=== PATIENT | female | born 1970 | race Caucasian/White ===

== ENCOUNTER 2021-03-13 19:56 | Emergency (ER) | payer OTHER, SELFPAY ==
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
[2021-03-13 20:00] VITALS: BP 184/86; PULSE 106; RESP 16; TEMP 37.7; O2SAT 100
[2021-03-13 23:35] VITALS: BP 177/67; PULSE 83; RESP 16; TEMP 36.7; O2SAT 100
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
[2021-03-13] MEDS: HYDROcodone/acetaminophen (*CRX) 5-325 MG TABLET 1 TAB PO (23:58)
[2021-03-14 00:09] VITALS: PULSE 81; RESP 18; O2SAT 100
== END 2021-03-14 00:10 | disposition home or self-care (01) ==
LOC: ANHED 23:52
PROVIDERS: Emergency Provider Family Medicine; PCP Internal Medicine
DX: R07.89 Other chest pain (principal); V43.52XA Car driver injured in collision with other type car in traffic accident, initial encounter
CPT/HCPCS: 71046; 99283; A9270

== ENCOUNTER 2021-04-12 13:57 | Outpatient (CLI) | payer BC, SELFPAY ==
--- NOTE | ~2021-04-12 | XR_ITS ---
XR lumbar spine min 4V DATE: 04/12/2021 14:34 INDICATION: Acute bilateral low back pain TECHNIQUE: AP, lateral, bilateral oblique views, coned lateral lumbosacral view COMPARISON: None FINDINGS: Mild levoscoliosis. No fracture or spondylolisthesis. The lumbar pedicles are intact. No fracture or bone destruction or spondylolysis. Lumbar and lumbosacral interspaces are well preserve d. There is degenerative change at the apophyseal joints. The sacroiliac joints are intact. Status post cholecystectomy. IMPRESSION: No significant abnormality Reviewed, dictated and finalized at location A. [facility] IMPRESSION: No significant abnormality
--- NOTE | ~2021-04-12 | XR_ITS ---
XR knee LT 3V DATE: 04/12/2021 14:34 INDICATION: Acute left knee pain TECHNIQUE: AP, lateral, sunrise views COMPARISON: None FINDINGS: There is periarticular spurring at all 3 compartments. Joint spaces are relatively intact. Hypertrophy of the tibial spines. Osteopenia. No fracture or dislocation or significant joint effusion. No radiopaque intra-articular loose body or chondrocalcinosis. No periosteal reaction or bone destruction. IMPRESSION: Moderate osteopenia Mild tricompartment osteoarthritis Reviewed, dictated and finalized at location A. [facility]
== END 2021-04-12 13:58 | disposition home or self-care (01) ==
PROVIDERS: PCP Internal Medicine; Visit Provider Internal Medicine
DX: M17.12 Unilateral primary osteoarthritis, left knee (principal); M41.9 Scoliosis, unspecified
CPT/HCPCS: 72110; 73562